=== PATIENT | female | born 1960 | race Asian ===

== ENCOUNTER 2016-10-08 19:37 | Inpatient (IN) | payer MEDICAID ==
[~2016-10-08] VITALS: Ht 154.9 cm; Wt 44.6 kg
[2016-10-08] MEDS ORDERED: SODIUM CHLORIDE 0.9% 1,000 ML IV ONE (20:15)
[2016-10-08 20:41] LABS: Basophils # (auto) 0.1 uL; Basophils % (auto) 0.7 % (0.0-2.0); DEFINITIVE VIEW TRANSMISSION; Eosinophils # (auto) 0.2 uL; Eosinophils % (auto) 1.9 % (0.0-7.0); Hematocrit 36.7 % (36.0-46.0); Hemoglobin 11.3 g/dL (12.2-16.2); Lymphocytes # (auto) 2.8 uL; Lymphocytes % (auto) 33.9 % (10.0-50.0); Mean Corpuscular Hemoglobin 24.7 pg (28.0-32.0); Mean Corpuscular Hgb Conc. 30.7 g/dL (32.0-36.0); Mean Corpuscular Volume 80.5 fL (80.0-100.0); Mean Platelet Volume 7.9 fL (7.4-10.4); Monocytes # (auto) 0.6 uL; Monocytes % (auto) 7.7 % (0.0-12.0); Neutrophils # (auto) 4.7 uL; Neutrophils % (auto) 55.8 % (37.0-80.0); Platelet Count (auto) 384 10^3/uL (140-450); Red Cell Distribution Width 18.6 % (11.6-16.0); White Blood Cell 8.4 10^3/uL (4.4-10.8)
[2016-10-08 20:44] LABS: Albumin 1.9 g/dL (3.4-5.0); Anion Gap 9 (5-15); Aspartate Aminotransferase 13 U/L (15-37); BUN/Creatinine Ratio 8.6; Blood Urea Nitrogen 19 mg/dL (7-18); Calcium 8.6 mg/dL (8.5-10.1); Carbon Dioxide 29 mmol/L (21-32); Chloride 97 mmol/L (98-107); GFR African American 29 mL/min; GFR Non-African American 24 mL/min; Glucose 127 mg/dL (74-106); Magnesium 2.1 mg/dL (1.6-2.6); Potassium 3.6 mmol/L (3.5-5.1); Sodium 135 mmol/L (136-145)
[2016-10-08 20:50] LABS: Alkaline Phosphatase 107 U/L (45-117); Bilirubin, Total 0.3 mg/dL (0.2-1.0); INR 1.04 (0.9-1.15); Partial Thromboplastin Time 30.6 sec (22.64-33.71); Prothrombin Time 11.2 sec (9.37-12.3)
[2016-10-08] MEDS ORDERED: MORPHINE SULF INJ 2 MG/ML SYRINGE 1ML IV ONE (23:00)
[2016-10-08] MEDS ORDERED: ONDANSETRON HCL 4 MG/2 ML VIAL IV ONE (23:00)
[2016-10-08] MEDS ORDERED: cefTRIAXone 1GM/50ML D5W 50 ML IV ONE (23:30)
[2016-10-08 23:49] LABS: Urine Bilirubin Negative (Negative); Urine Blood 2+ /uL (Negative); Urine Color Yellow (Yellow); Urine Glucose 1+ mg/dL (Normal); Urine Ketone Negative (Negative); Urine Nitrite Negative (Negative); Urine RBC 12 /hpf (0 - 4); Urine Urobilinogen Normal (Negative)
[2016-10-09] MEDS ORDERED: LIDOCAINE 1% HCL (LOCAL ANESTH.) INJ 20ML MDV ONE (03:34)
[2016-10-09] MEDS ORDERED: MORPHINE SULF INJ 2 MG/ML SYRINGE 1ML IV PRN (06:00)
[2016-10-09] MEDS ORDERED: ONDANSETRON HCL 4 MG/2 ML VIAL IV PRN (06:00)
[2016-10-09] MEDS ORDERED: NITROGLYCERIN 0.4 MG SL TAB SL PRN (06:00)
[2016-10-09] MEDS: InsuLIN REG 1unit/0.01ml Soln (100units/ml) SC SCH ×4 (06:00→22:55)
[2016-10-09] MEDS ORDERED: hydrALAZINE HCL 20 MG/ML VL IV ONE (06:00)
[2016-10-09] MEDS ORDERED: DEXTROSE (50%) 50ML SYRG IV PRN (06:00)
[2016-10-09] MEDS: ACCU-CHEK COMFORT CURVE STRIP VI SCH ×4 (06:19→22:55)
[2016-10-09] MEDS ORDERED: MORPHINE SULF INJ 2 MG/ML SYRINGE 1ML IV ONE (06:30)
[2016-10-09] MEDS ORDERED: LEVOFLOXACIN 500MG 100 ML IV ONE (06:30)
[2016-10-09] MEDS: LEVOTHYROXINE SODIUM 25 MCG TAB PO SCH (06:47)
[2016-10-09 09:00] VITALS: BP 153/95
[2016-10-09] MEDS: ENOXAPARIN SOD 30 MG/0.3 ML SYRINGE SC SCH (09:26)
[2016-10-09] MEDS: PANTOPRAZOLE SODIUM 40 MG/10 ML VIAL IV SCH (09:26)
[2016-10-09] MEDS: METOPROLOL SUCCINATE XL 50 MG TAB PO SCH (09:27)
[2016-10-09] MEDS: amLODIPine BESYLATE 5 MG TAB PO SCH (09:28)
[2016-10-09] MEDS ORDERED: ATOR40TA52 PO (09:55)
[2016-10-09] MEDS ORDERED: AMLO10TA2 PO (09:55)
[2016-10-09] MEDS ORDERED: BENAZEPRIL HCL 10 MG TAB PO SCH (10:00)
[2016-10-09] MEDS: ACETAMINOPHEN 325 MG TAB PO PRN ×2 (14:56→22:54)
[2016-10-09] MEDS ORDERED: ASPirin 81 mg TAB PO ONE (15:45)
[2016-10-09 16:26] VITALS: BP 137/72
[2016-10-09] MEDS ORDERED: hydrALAZINE HCL 20 MG/ML VL IV PRN (17:30)
[2016-10-09] MEDS ORDERED: FUROSEMIDE 100 MG/10ML VIAL IV ONE (17:30)
[2016-10-09] MEDS ORDERED: SODIUM CHLORIDE 0.9% 1,000 ML IV ONE ×2 (17:30)
[2016-10-09 21:20] LABS: Cholesterol 186 mg/dL (< 200); HDL Cholesterol 34 mg/dL (40-59); LDL Cholesterol 120 mg/dL (< 100); Triglycerides 132 mg/dL (< 150)
[2016-10-09 21:43] LABS: Temperature: 23.7 C (20.0-25.0)
[2016-10-09 22:00] VITALS: BP 145/88
[2016-10-09] MEDS: ATORVASTATIN 20 MG TAB PO SCH (22:54)
[2016-10-09 23:30] VITALS: BP 143/84
[2016-10-10] VITALS (8 sets, daily range): BP systolic 123–169; BP diastolic 70–98
[2016-10-10] MEDS: ACCU-CHEK COMFORT CURVE STRIP VI SCH ×4 (06:00→23:02)
[2016-10-10] MEDS: InsuLIN REG 1unit/0.01ml Soln (100units/ml) SC SCH ×4 (06:00→23:02)
[2016-10-10 06:18] LABS: Basophils # (auto) 0 uL; Basophils % (auto) 0.7 % (0.0-2.0); DEFINITIVE VIEW TRANSMISSION; Eosinophils # (auto) 0.3 uL; Eosinophils % (auto) 4.1 % (0.0-7.0); Hematocrit 38.8 % (36.0-46.0); Hemoglobin 11.7 g/dL (12.2-16.2); Lymphocytes # (auto) 2.7 uL; Lymphocytes % (auto) 36.2 % (10.0-50.0); Mean Corpuscular Hemoglobin 24.8 pg (28.0-32.0); Mean Corpuscular Hgb Conc. 30.1 g/dL (32.0-36.0); Mean Corpuscular Volume 82.4 fL (80.0-100.0); Mean Platelet Volume 7.9 fL (7.4-10.4); Monocytes # (auto) 0.6 uL; Monocytes % (auto) 7.5 % (0.0-12.0); Neutrophils # (auto) 3.8 uL; Neutrophils % (auto) 51.5 % (37.0-80.0); Platelet Count (auto) 367 10^3/uL (140-450); Red Cell Distribution Width 18.5 % (11.6-16.0); White Blood Cell 7.4 10^3/uL (4.4-10.8)
[2016-10-10] MEDS: LEVOTHYROXINE SODIUM 25 MCG TAB PO SCH (06:39)
[2016-10-10 06:41] LABS: Potassium 4.2 mmol/L (3.5-5.1)
[2016-10-10 06:44] LABS: Albumin 1.9 g/dL (3.4-5.0); BUN/Creatinine Ratio 10.6; Calcium 9.2 mg/dL (8.5-10.1)
[2016-10-10 06:57] LABS: Bilirubin, Total 0.2 mg/dL (0.2-1.0); Total Protein 7.9 g/dL (6.4-8.2)
[2016-10-10] MEDS ORDERED: EPOETIN ALFA 10,000 UNIT/1 ML VIAL IV ONE (11:45)
[2016-10-10] MEDS: ACETAMINOPHEN 325 MG TAB PO PRN (14:54)
[2016-10-10] MEDS: PANTOPRAZOLE SODIUM 40 MG/10 ML VIAL IV SCH (15:47)
[2016-10-10] MEDS: LEVOFLOXACIN 250MG 50 ML IV SCH (15:47)
[2016-10-10] MEDS: ASPirin 81 mg TAB PO SCH (15:48)
[2016-10-10] MEDS: amLODIPine BESYLATE 5 MG TAB PO SCH (17:00)
[2016-10-10] MEDS: METOPROLOL SUCCINATE XL 50 MG TAB PO SCH (17:01)
[2016-10-10] MEDS: ENOXAPARIN SOD 30 MG/0.3 ML SYRINGE SC SCH (17:13)
[2016-10-10] MEDS: ATORVASTATIN 20 MG TAB PO SCH (21:35)
[2016-10-11] MEDS: MORPHINE SULF INJ 2 MG/ML SYRINGE 1ML IV PRN ×5 (01:01→22:00)
[2016-10-11] MEDS: InsuLIN REG 1unit/0.01ml Soln (100units/ml) SC SCH ×3 (05:35→18:00)
[2016-10-11] MEDS: ACCU-CHEK COMFORT CURVE STRIP VI SCH ×3 (05:35→18:21)
[2016-10-11 06:00] VITALS: BP 165/88
[2016-10-11] MEDS: LEVOTHYROXINE SODIUM 25 MCG TAB PO SCH (06:08)
[2016-10-11 06:31] LABS: Basophils # (auto) 0 uL; Basophils % (auto) 0.6 % (0.0-2.0); DEFINITIVE VIEW TRANSMISSION; Eosinophils # (auto) 0.2 uL; Eosinophils % (auto) 3.1 % (0.0-7.0); Hematocrit 36.9 % (36.0-46.0); Hemoglobin 11.2 g/dL (12.2-16.2); Lymphocytes # (auto) 1.4 uL; Lymphocytes % (auto) 22.7 % (10.0-50.0); Mean Corpuscular Hemoglobin 24.5 pg (28.0-32.0); Mean Corpuscular Hgb Conc. 30.4 g/dL (32.0-36.0); Mean Corpuscular Volume 80.5 fL (80.0-100.0); Mean Platelet Volume 7.8 fL (7.4-10.4); Monocytes # (auto) 0.4 uL; Monocytes % (auto) 6.6 % (0.0-12.0); Neutrophils # (auto) 4.2 uL; Platelet Count (auto) 353 10^3/uL (140-450); Red Cell Distribution Width 18.4 % (11.6-16.0); White Blood Cell 6.2 10^3/uL (4.4-10.8)
[2016-10-11 06:45] LABS: Potassium 4.2 mmol/L (3.5-5.1)
[2016-10-11 06:49] LABS: Albumin 1.8 g/dL (3.4-5.0); BUN/Creatinine Ratio 9.7; Calcium 8.3 mg/dL (8.5-10.1)
[2016-10-11 06:52] LABS: Bilirubin, Total 0.2 mg/dL (0.2-1.0); Total Protein 7.4 g/dL (6.4-8.2)
[2016-10-11 09:00] VITALS: BP 155/91
[2016-10-11] MEDS: LEVOFLOXACIN 250MG 50 ML IV SCH (09:40)
[2016-10-11] MEDS: PANTOPRAZOLE SODIUM 40 MG/10 ML VIAL IV SCH (09:40)
[2016-10-11] MEDS: ENOXAPARIN SOD 30 MG/0.3 ML SYRINGE SC SCH (09:40)
[2016-10-11] MEDS: ASPirin 81 mg TAB PO SCH (09:41)
[2016-10-11] MEDS: PRO-STAT 64 30ML PO SCH (09:42)
[2016-10-11] MEDS: METOPROLOL SUCCINATE XL 50 MG TAB PO SCH (09:42)
[2016-10-11] MEDS: amLODIPine BESYLATE 5 MG TAB PO SCH (09:42)
[2016-10-11 13:00] VITALS: BP 164/60
[2016-10-11 17:00] VITALS: BP 154/90
[2016-10-11 21:26] VITALS: BP 136/78
[2016-10-11] MEDS: ATORVASTATIN 20 MG TAB PO SCH (21:59)
[2016-10-12 04:48] VITALS: BP 170/93
[2016-10-12] MEDS: InsuLIN REG 1unit/0.01ml Soln (100units/ml) SC SCH ×4 (06:00→18:00)
[2016-10-12] MEDS: LEVOTHYROXINE SODIUM 25 MCG TAB PO SCH (06:04)
[2016-10-12] MEDS: ACCU-CHEK COMFORT CURVE STRIP VI SCH ×4 (06:04→18:11)
[2016-10-12 07:02] LABS: Basophils # (auto) 0 uL; Basophils % (auto) 0.3 % (0.0-2.0); DEFINITIVE VIEW TRANSMISSION; Eosinophils # (auto) 0.4 uL; Hematocrit 37.6 % (36.0-46.0); Hemoglobin 11.5 g/dL (12.2-16.2); Lymphocytes # (auto) 1.5 uL; Lymphocytes % (auto) 19.9 % (10.0-50.0); Mean Corpuscular Hemoglobin 24.6 pg (28.0-32.0); Mean Corpuscular Hgb Conc. 30.7 g/dL (32.0-36.0); Mean Corpuscular Volume 80.3 fL (80.0-100.0); Mean Platelet Volume 7.8 fL (7.4-10.4); Monocytes # (auto) 0.6 uL; Monocytes % (auto) 7.2 % (0.0-12.0); Neutrophils # (auto) 5.2 uL; Neutrophils % (auto) 67.6 % (37.0-80.0); Platelet Count (auto) 382 10^3/uL (140-450); Red Cell Distribution Width 18.5 % (11.6-16.0); White Blood Cell 7.7 10^3/uL (4.4-10.8)
[2016-10-12 07:21] LABS: Calcium 8.6 mg/dL (8.5-10.1); Potassium 4.4 mmol/L (3.5-5.1)
[2016-10-12 07:23] LABS: BUN/Creatinine Ratio 11.9
[2016-10-12] MEDS: MORPHINE SULF INJ 2 MG/ML SYRINGE 1ML IV PRN ×4 (07:31→22:11)
[2016-10-12] MEDS ORDERED: SODIUM CHL 0.9% 1000 ML BAG XX ONE (08:30)
[2016-10-12 09:01] VITALS: BP 170/86
[2016-10-12] MEDS: ENOXAPARIN SOD 30 MG/0.3 ML SYRINGE SC SCH (09:56)
[2016-10-12] MEDS: PANTOPRAZOLE SODIUM 40 MG/10 ML VIAL IV SCH (09:56)
[2016-10-12] MEDS: ASPirin 81 mg TAB PO SCH (09:56)
[2016-10-12] MEDS: PRO-STAT 64 30ML PO SCH (10:00)
[2016-10-12] MEDS: LEVOFLOXACIN 250MG 50 ML IV SCH (13:12)
[2016-10-12 13:17] VITALS: BP 153/81
[2016-10-12] MEDS: METOPROLOL SUCCINATE XL 50 MG TAB PO SCH (13:18)
[2016-10-12] MEDS: amLODIPine BESYLATE 5 MG TAB PO SCH (13:19)
[2016-10-12 14:04] VITALS: BP 117/72
[2016-10-12 17:08] VITALS: BP 163/84
[2016-10-12 20:00] VITALS: BP 166/83
[2016-10-12] MEDS: ATORVASTATIN 20 MG TAB PO SCH (22:11)
[2016-10-13] MEDS: InsuLIN REG 1unit/0.01ml Soln (100units/ml) SC SCH ×3 (00:13→12:00)
[2016-10-13] MEDS: ACCU-CHEK COMFORT CURVE STRIP VI SCH ×3 (00:13→12:00)
[2016-10-13 05:31] VITALS: BP 150/77
[2016-10-13 06:05] LABS: BUN/Creatinine Ratio 13.7; Calcium 8.2 mg/dL (8.5-10.1); Potassium 4.2 mmol/L (3.5-5.1)
[2016-10-13] MEDS: LEVOTHYROXINE SODIUM 25 MCG TAB PO SCH (06:25)
[2016-10-13] MEDS: MORPHINE SULF INJ 2 MG/ML SYRINGE 1ML IV PRN (09:38)
[2016-10-13] MEDS: PRO-STAT 64 30ML PO SCH (10:00)
[2016-10-13] MEDS: PANTOPRAZOLE SODIUM 40 MG/10 ML VIAL IV SCH (11:12)
[2016-10-13] MEDS: ASPirin 81 mg TAB PO SCH (11:13)
[2016-10-13] MEDS: ENOXAPARIN SOD 30 MG/0.3 ML SYRINGE SC SCH (11:13)
[2016-10-13] MEDS: METOPROLOL SUCCINATE XL 50 MG TAB PO SCH (11:14)
[2016-10-13] MEDS: LEVOFLOXACIN 250MG 50 ML IV SCH (11:14)
[2016-10-13] MEDS: amLODIPine BESYLATE 5 MG TAB PO SCH (13:37)
[2016-10-13 16:13] VITALS: BP 163/81
[2016-10-13] MEDS: ACETAMINOPHEN 325 MG TAB PO PRN (16:58)
[2016-10-13] MEDS ORDERED: Novasource Renal 8 Ounces PO SCH (18:00)
== END 2016-10-13 17:40 | disposition home or self-care (01) | DRG 720 ==
LOC: EDBD 19:37 → ER 19:48 → TELE 19:49 → TELE-EAST 10-09 09:00 → TELE-WESTW 10-10 15:15
PROVIDERS: ADMIT Nurse Practitioner; ATTEND Internal Medicine
DX: A41.9 Sepsis, unspecified organism (principal); G93.41 Metabolic encephalopathy; E43 Unspecified severe protein-calorie malnutrition; L89.159 Pressure ulcer of sacral region, unspecified stage; N17.9 Acute kidney failure, unspecified; I12.0 Hypertensive chronic kidney disease with stage 5 chronic kidney disease or end stage renal disease; S32.10XA Unspecified fracture of sacrum, initial encounter for closed fracture; N18.6 End stage renal disease; E11.22 Type 2 diabetes mellitus with diabetic chronic kidney disease; J98.11 Atelectasis; E78.5 Hyperlipidemia, unspecified; D63.1 Anemia in chronic kidney disease; E03.9 Hypothyroidism, unspecified; N30.90 Cystitis, unspecified without hematuria; F03.90 Unspecified dementia, unspecified severity, without behavioral disturbance, psychotic disturbance, mood disturbance, and anxiety; S42.031A Displaced fracture of lateral end of right clavicle, initial encounter for closed fracture; X58.XXXA Exposure to other specified factors, initial encounter; Z87.891 Personal history of nicotine dependence; Z86.73 Personal history of transient ischemic attack (TIA), and cerebral infarction without residual deficits; Z68.1 Body mass index [BMI] 19.9 or less, adult; Z99.2 Dependence on renal dialysis; Z91.81 History of falling; Z74.01 Bed confinement status; Y93.89 Activity, other specified; Y92.89 Other specified places as the place of occurrence of the external cause; Y99.8 Other external cause status; I69.354 Hemiplegia and hemiparesis following cerebral infarction affecting left non-dominant side
CPT/HCPCS: 36415; 51702; 70450; 71010; 72125; 74176; 80048; 80053; 80061; 80307; 80320; 81001; 82607; 82746; 82962; 83036; 83605; 83735; 84439; 84443; 84484; 85025; 85610; 85730; 87040; 87086; 93005; 93926; 94761; 95819; 96361; 96365; 96375; 97001; C9113; J0696; J0885; J1815; J1956; J2001; J2405

== ENCOUNTER 2017-01-28 18:29 | Inpatient (IN) | payer MEDICAID ==
[~2017-01-28] VITALS: Ht 154.9 cm; Wt 69.1 kg
[~2017-01-28 18:29] MED LIST: AMLO10TA2 PO; ATOR40TA52 PO
[2017-01-28 21:19] LABS: Basophils # (auto) 0 uL; Basophils % (auto) 0.2 % (0.0-2.0); CONDITION Y; DEFINITIVE SEE PRINTOUT; Eosinophils # (auto) 0.8 uL; Eosinophils % (auto) 5.6 % (0.0-7.0); Hematocrit 33.8 % (36.0-46.0); Hemoglobin 10.8 g/dL (12.2-16.2); Lymphocytes # (auto) 2.5 uL; Mean Corpuscular Hemoglobin 24.5 pg (28.0-32.0); Mean Corpuscular Hgb Conc. 32.1 g/dL (32.0-36.0); Mean Corpuscular Volume 76.3 fL (80.0-100.0); Mean Platelet Volume 8.1 fL (7.4-10.4); Monocytes # (auto) 1.1 uL; Monocytes % (auto) 7.4 % (0.0-12.0); Neutrophils # (auto) 10.4 uL; Neutrophils % (auto) 69.8 % (37.0-80.0); Platelet Count (auto) 508 10^3/uL (140-450); Red Cell Distribution Width 17.7 % (11.6-16.0); White Blood Cell 14.9 10^3/uL (4.4-10.8)
[2017-01-28 21:31] LABS: Albumin 2.4 g/dL (3.4-5.0); BUN/Creatinine Ratio 12.8; Bilirubin, Total 0.3 mg/dL (0.2-1.0); Calcium 9.5 mg/dL (8.5-10.1); Potassium 4.2 mmol/L (3.5-5.1)
[2017-01-28 21:34] LABS: Partial Thromboplastin Time 30.4 sec (22.64-33.71); Prothrombin Time 10.9 sec (9.37-12.3)
[2017-01-28] MEDS ORDERED: ONDANSETRON HCL 4 MG/2 ML VIAL IV ONE (22:30)
[2017-01-28] MEDS ORDERED: MORPHINE SULFATE 4 MG/ML SYRG IM ONE (22:30)
[2017-01-28] MEDS ORDERED: MORPHINE SULFATE 4 MG/ML SYRG IV ONE (22:45)
[2017-01-29] MEDS ORDERED: VANCOMYCIN 1GM/250ML D5W 250 ML IV ONE (03:45)
[2017-01-29] MEDS ORDERED: B CO OR (04:17)
[2017-01-29] MEDS ORDERED: SENN8.6T15 PO (04:17)
[2017-01-29] MEDS ORDERED: PANT40TA2 PO (04:19)
[2017-01-29] MEDS ORDERED: CHOL20007 PO (04:19)
[2017-01-29] MEDS ORDERED: DOCU-94 PO (04:19)
[2017-01-29] MEDS ORDERED: DEXTROSE (50%) 50ML SYRG IV PRN (05:15)
[2017-01-29] MEDS ORDERED: NITROGLYCERIN 0.4 MG SL TAB SL PRN (05:15)
[2017-01-29] MEDS ORDERED: ONDANSETRON HCL 4 MG/2 ML VIAL IV PRN (05:15)
[2017-01-29] MEDS ORDERED: MORPHINE SULF INJ 2 MG/ML SYRINGE 1ML IV PRN (05:15)
[2017-01-29] MEDS ORDERED: ACETAMINOPHEN 325 MG TAB PO PRN (05:15)
[2017-01-29] MEDS: SODIUM CHLORIDE 0.9% 1,000 ML IV SCH (05:27)
[2017-01-29] MEDS: HYDROcodone-ACET 5/325MG TAB PO PRN ×3 (06:05→16:01)
[2017-01-29] MEDS: ACCU-CHEK COMFORT CURVE STRIP VI SCH ×4 (06:08→23:46)
[2017-01-29] MEDS: InsuLIN REG 1unit/0.01ml Soln (100units/ml) SC SCH ×4 (06:08→23:46)
[2017-01-29] MEDS: LEVOTHYROXINE SODIUM 25 MCG TAB PO SCH (06:39)
[2017-01-29] MEDS: cefTRIAXone 1GM/50ML D5W 50 ML IV SCH (07:50)
[2017-01-29 10:00] VITALS: BP 149/76
[2017-01-29] MEDS ORDERED: amLODIPine BESYLATE 5 MG TAB PO SCH (10:00)
[2017-01-29] MEDS: ENOXAPARIN SOD 30 MG/0.3 ML SYRINGE SC SCH (11:53)
[2017-01-29] MEDS: PANTOPRAZOLE 40 MG/10 ML VIAL IV SCH (11:53)
[2017-01-29 13:00] VITALS: BP 166/94
[2017-01-29] MEDS ORDERED: VANCOMYCIN PER PHARMACY 0 MG IV SCH (15:00)
[2017-01-29] MEDS ORDERED: ASPirin-EC 81 mg tab PO ONE (16:00)
[2017-01-29 17:00] VITALS: BP 132/79
[2017-01-29] MEDS: cloNIDine HCL 0.1 MG TAB PO PRN (17:33)
[2017-01-29 22:00] VITALS: BP 149/83
[2017-01-29] MEDS: ATORVASTATIN 20 MG TAB PO SCH (22:07)
[2017-01-30 05:00] VITALS: BP 146/82
[2017-01-30 05:11] LABS: Basophils # (auto) 0 uL; Basophils % (auto) 0.2 % (0.0-2.0); CONDITION Y; DEFINITIVE SEE PRINTOUT; Eosinophils # (auto) 0.5 uL; Eosinophils % (auto) 3.2 % (0.0-7.0); Hematocrit 34.7 % (36.0-46.0); Hemoglobin 11.3 g/dL (12.2-16.2); Lymphocytes # (auto) 1.5 uL; Mean Corpuscular Hemoglobin 24.8 pg (28.0-32.0); Mean Corpuscular Hgb Conc. 32.6 g/dL (32.0-36.0); Mean Platelet Volume 7.7 fL (7.4-10.4); Monocytes % (auto) 6.9 % (0.0-12.0); Neutrophils # (auto) 12.1 uL; Neutrophils % (auto) 79.7 % (37.0-80.0); Platelet Count (auto) 520 10^3/uL (140-450); Red Cell Distribution Width 17.6 % (11.6-16.0); White Blood Cell 15.1 10^3/uL (4.4-10.8)
[2017-01-30] MEDS: ACCU-CHEK COMFORT CURVE STRIP VI SCH ×3 (05:43→17:34)
[2017-01-30] MEDS: InsuLIN REG 1unit/0.01ml Soln (100units/ml) SC SCH ×3 (05:43→17:34)
[2017-01-30 05:44] LABS: Albumin 2.4 g/dL (3.4-5.0); Bilirubin, Total 0.3 mg/dL (0.2-1.0); Calcium 9.8 mg/dL (8.5-10.1); Magnesium 2.2 mg/dL (1.6-2.6); Potassium 5.2 mmol/L (3.5-5.1)
[2017-01-30] MEDS: LEVOTHYROXINE SODIUM 25 MCG TAB PO SCH (06:18)
[2017-01-30 08:30] VITALS: BP 159/92
[2017-01-30] MEDS: SODIUM CHLORIDE 0.9% 1,000 ML IV SCH (09:45)
[2017-01-30] MEDS: cefTRIAXone 1GM/50ML D5W 50 ML IV SCH (09:46)
[2017-01-30] MEDS: PANTOPRAZOLE 40 MG/10 ML VIAL IV SCH (09:48)
[2017-01-30] MEDS: ASPirin-EC 81 mg tab PO SCH (09:48)
[2017-01-30] MEDS: ENOXAPARIN SOD 30 MG/0.3 ML SYRINGE SC SCH (09:48)
[2017-01-30] MEDS: amLODIPine BESYLATE 5 MG TAB PO SCH (09:48)
[2017-01-30 12:30] VITALS: BP 167/89
[2017-01-30] MEDS: HYDROcodone-ACET 5/325MG TAB PO PRN (16:59)
[2017-01-30 17:26] VITALS: BP 119/64
[2017-01-30 20:00] VITALS: BP 142/75
[2017-01-30 22:00] VITALS: BP 142/75
[2017-01-30] MEDS: metroNIDAZOLE 500MG/100ML 100 ML IV SCH (22:09)
[2017-01-30] MEDS: ATORVASTATIN 20 MG TAB PO SCH (22:09)
[2017-01-31] MEDS: HYDROcodone-ACET 5/325MG TAB PO PRN ×3 (00:02→19:57)
[2017-01-31] MEDS: ACCU-CHEK COMFORT CURVE STRIP VI SCH ×4 (00:02→17:35)
[2017-01-31] MEDS: InsuLIN REG 1unit/0.01ml Soln (100units/ml) SC SCH ×4 (00:16→17:35)
[2017-01-31] MEDS: SODIUM CHLORIDE 0.9% 1,000 ML IV SCH (04:04)
[2017-01-31 05:00] VITALS: BP 165/85
[2017-01-31 06:00] LABS: Basophils # (auto) 0 uL; Basophils % (auto) 0.3 % (0.0-2.0); CONDITION Y; DEFINITIVE SEE PRINTOUT; Eosinophils # (auto) 0.3 uL; Eosinophils % (auto) 2.3 % (0.0-7.0); Hematocrit 35.7 % (36.0-46.0); Hemoglobin 11.6 g/dL (12.2-16.2); Lymphocytes # (auto) 1.5 uL; Lymphocytes % (auto) 10.3 % (10.0-50.0); Mean Corpuscular Hemoglobin 24.7 pg (28.0-32.0); Mean Corpuscular Hgb Conc. 32.6 g/dL (32.0-36.0); Mean Corpuscular Volume 75.9 fL (80.0-100.0); Mean Platelet Volume 7.5 fL (7.4-10.4); Monocytes # (auto) 0.8 uL; Monocytes % (auto) 5.8 % (0.0-12.0); Neutrophils # (auto) 11.9 uL; Neutrophils % (auto) 81.3 % (37.0-80.0); Platelet Count (auto) 490 10^3/uL (140-450); Red Cell Distribution Width 17.6 % (11.6-16.0); White Blood Cell 14.6 10^3/uL (4.4-10.8)
[2017-01-31 06:36] LABS: Potassium 4.5 mmol/L (3.5-5.1)
[2017-01-31] MEDS: LEVOTHYROXINE SODIUM 25 MCG TAB PO SCH (06:38)
[2017-01-31] MEDS: metroNIDAZOLE 500MG/100ML 100 ML IV SCH (06:39)
[2017-01-31] MEDS: cloNIDine HCL 0.1 MG TAB PO PRN (06:40)
[2017-01-31 06:41] LABS: BUN/Creatinine Ratio 13.2; Calcium 9.8 mg/dL (8.5-10.1)
[2017-01-31 08:00] VITALS: BP 184/85
[2017-01-31] MEDS: cefTRIAXone 1GM/50ML D5W 50 ML IV SCH (08:16)
[2017-01-31 09:00] VITALS: BP 165/80
[2017-01-31] MEDS ORDERED: VANCOMYCIN 500 MG in D5W 5% 100 ML IV ONE (09:00)
[2017-01-31] MEDS: PANTOPRAZOLE 40 MG/10 ML VIAL IV SCH (10:31)
[2017-01-31] MEDS: ENOXAPARIN SOD 30 MG/0.3 ML SYRINGE SC SCH (10:31)
[2017-01-31] MEDS: amLODIPine BESYLATE 5 MG TAB PO SCH (10:33)
[2017-01-31] MEDS: ASPirin-EC 81 mg tab PO SCH (10:33)
[2017-01-31] MEDS ORDERED: MEROPENEM 500MG IVPB 100 ML IV ONE (12:00)
[2017-01-31 12:59] VITALS: BP 134/70
[2017-01-31 16:16] VITALS: BP 156/86
[2017-01-31 22:00] VITALS: BP 129/75
[2017-01-31] MEDS: ATORVASTATIN 20 MG TAB PO SCH (22:34)
[2017-01-31] MEDS: MEROPENEM 500MG IVPB 100 ML IV SCH (22:34)
[2017-02-01] MEDS: ACCU-CHEK COMFORT CURVE STRIP VI SCH ×5 (00:02→23:56)
[2017-02-01] MEDS: InsuLIN REG 1unit/0.01ml Soln (100units/ml) SC SCH ×5 (00:03→23:56)
[2017-02-01 05:00] VITALS: BP 160/90
[2017-02-01] MEDS: SODIUM CHLORIDE 0.9% 1,000 ML IV SCH (05:28)
[2017-02-01] MEDS: LEVOTHYROXINE SODIUM 25 MCG TAB PO SCH (05:41)
[2017-02-01 06:21] LABS: Basophils # (auto) 0 uL; Basophils % (auto) 0.1 % (0.0-2.0); CONDITION Y; DEFINITIVE SEE PRINTOUT; Eosinophils # (auto) 0.5 uL; Eosinophils % (auto) 3.4 % (0.0-7.0); Hemoglobin 11.7 g/dL (12.2-16.2); Lymphocytes # (auto) 1.8 uL; Lymphocytes % (auto) 11.6 % (10.0-50.0); Mean Corpuscular Hemoglobin 24.7 pg (28.0-32.0); Mean Corpuscular Hgb Conc. 32.5 g/dL (32.0-36.0); Mean Corpuscular Volume 76.1 fL (80.0-100.0); Mean Platelet Volume 7.7 fL (7.4-10.4); Monocytes % (auto) 6.1 % (0.0-12.0); Neutrophils # (auto) 12.5 uL; Neutrophils % (auto) 78.8 % (37.0-80.0); Platelet Count (auto) 500 10^3/uL (140-450); Red Cell Distribution Width 17.9 % (11.6-16.0); White Blood Cell 15.9 10^3/uL (4.4-10.8)
[2017-02-01 07:13] LABS: Albumin 2.5 g/dL (3.4-5.0); BUN/Creatinine Ratio 14.7; Bilirubin, Total 0.3 mg/dL (0.2-1.0); Calcium 10.1 mg/dL (8.5-10.1); Potassium 5.2 mmol/L (3.5-5.1); Total Protein 9.5 g/dL (6.4-8.2)
[2017-02-01] MEDS ORDERED: SODIUM CHL 0.9% 1000 ML BAG XX ONE (09:15)
[2017-02-01 09:28] VITALS: BP 168/80
[2017-02-01] MEDS: B-COMPLEX W/ C & FOLIC ACID(NEPHROVITE TAB) PO SCH (10:00)
[2017-02-01] MEDS: MEROPENEM 500MG IVPB 100 ML IV SCH ×2 (10:00→21:54)
[2017-02-01] MEDS: ASPirin-EC 81 mg tab PO SCH (10:00)
[2017-02-01] MEDS: amLODIPine BESYLATE 5 MG TAB PO SCH (10:00)
[2017-02-01] MEDS: ASCORBIC ACID 500 MG TAB PO SCH ×2 (10:00→21:54)
[2017-02-01] MEDS: PANTOPRAZOLE 40 MG/10 ML VIAL IV SCH (10:00)
[2017-02-01 12:58] VITALS: BP 121/77
[2017-02-01 13:46] VITALS: BP 107/65
[2017-02-01] MEDS: ENOXAPARIN SOD 30 MG/0.3 ML SYRINGE SC SCH (13:52)
[2017-02-01 17:37] VITALS: BP 161/85
[2017-02-01] MEDS: HYDROcodone-ACET 5/325MG TAB PO PRN (18:05)
[2017-02-01 21:41] VITALS: BP 139/81
[2017-02-01] MEDS: ATORVASTATIN 20 MG TAB PO SCH (21:54)
[2017-02-02 04:59] VITALS: BP 151/89
[2017-02-02 06:12] LABS: Basophils # (auto) 0.1 uL; Basophils % (auto) 0.4 % (0.0-2.0); CONDITION Y; DEFINITIVE SEE PRINTOUT; Eosinophils # (auto) 0.3 uL; Eosinophils % (auto) 2.4 % (0.0-7.0); Hematocrit 33.1 % (36.0-46.0); Hemoglobin 10.8 g/dL (12.2-16.2); Lymphocytes # (auto) 1.7 uL; Lymphocytes % (auto) 11.5 % (10.0-50.0); Mean Corpuscular Hemoglobin 24.8 pg (28.0-32.0); Mean Corpuscular Hgb Conc. 32.5 g/dL (32.0-36.0); Mean Corpuscular Volume 76.4 fL (80.0-100.0); Mean Platelet Volume 7.6 fL (7.4-10.4); Monocytes % (auto) 7.1 % (0.0-12.0); Neutrophils # (auto) 11.3 uL; Neutrophils % (auto) 78.6 % (37.0-80.0); Platelet Count (auto) 471 10^3/uL (140-450); Red Cell Distribution Width 17.8 % (11.6-16.0); White Blood Cell 14.3 10^3/uL (4.4-10.8)
[2017-02-02] MEDS: LEVOTHYROXINE SODIUM 25 MCG TAB PO SCH (06:32)
[2017-02-02] MEDS: ACCU-CHEK COMFORT CURVE STRIP VI SCH ×3 (06:32→17:46)
[2017-02-02] MEDS: InsuLIN REG 1unit/0.01ml Soln (100units/ml) SC SCH ×3 (06:33→17:46)
[2017-02-02 06:38] LABS: BUN/Creatinine Ratio 13.2; Calcium 9.3 mg/dL (8.5-10.1); Potassium 4.3 mmol/L (3.5-5.1)
[2017-02-02 08:33] VITALS: BP 146/83
[2017-02-02] MEDS: MEROPENEM 500MG IVPB 100 ML IV SCH ×2 (10:18→22:08)
[2017-02-02] MEDS: ASPirin-EC 81 mg tab PO SCH (10:18)
[2017-02-02] MEDS: ENOXAPARIN SOD 30 MG/0.3 ML SYRINGE SC SCH (10:19)
[2017-02-02] MEDS: PANTOPRAZOLE 40 MG/10 ML VIAL IV SCH (10:19)
[2017-02-02] MEDS: ASCORBIC ACID 500 MG TAB PO SCH ×2 (10:19→22:09)
[2017-02-02] MEDS: amLODIPine BESYLATE 5 MG TAB PO SCH (10:19)
[2017-02-02] MEDS: B-COMPLEX W/ C & FOLIC ACID(NEPHROVITE TAB) PO SCH (10:19)
[2017-02-02 12:50] VITALS: BP 155/75
[2017-02-02 17:07] VITALS: BP 161/88
[2017-02-02 22:08] VITALS: BP 152/80
[2017-02-02] MEDS: ATORVASTATIN 20 MG TAB PO SCH (22:08)
[2017-02-02] MEDS: HYDROcodone-ACET 5/325MG TAB PO PRN (22:21)
[2017-02-03] MEDS: ACCU-CHEK COMFORT CURVE STRIP VI SCH ×4 (00:54→17:19)
[2017-02-03] MEDS: InsuLIN REG 1unit/0.01ml Soln (100units/ml) SC SCH ×4 (00:54→18:21)
[2017-02-03 05:27] VITALS: BP 164/86
[2017-02-03] MEDS: LEVOTHYROXINE SODIUM 25 MCG TAB PO SCH (06:36)
[2017-02-03 08:00] VITALS: BP 149/87
[2017-02-03 09:23] VITALS: BP 149/87
[2017-02-03] MEDS: MEROPENEM 500MG IVPB 100 ML IV SCH ×2 (09:37→22:57)
[2017-02-03] MEDS: PANTOPRAZOLE 40 MG/10 ML VIAL IV SCH (09:37)
[2017-02-03] MEDS: B-COMPLEX W/ C & FOLIC ACID(NEPHROVITE TAB) PO SCH (09:38)
[2017-02-03] MEDS: amLODIPine BESYLATE 5 MG TAB PO SCH (09:38)
[2017-02-03] MEDS: ASCORBIC ACID 500 MG TAB PO SCH ×2 (09:38→22:07)
[2017-02-03] MEDS: ASPirin-EC 81 mg tab PO SCH (09:38)
[2017-02-03] MEDS: ENOXAPARIN SOD 30 MG/0.3 ML SYRINGE SC SCH (09:38)
[2017-02-03] MEDS ORDERED: SODIUM CHL 0.9% 1000 ML BAG XX ONE (10:45)
[2017-02-03 12:42] VITALS: BP 152/87
[2017-02-03] MEDS: HYDROcodone-ACET 5/325MG TAB PO PRN ×2 (13:41→22:30)
[2017-02-03 16:53] VITALS: BP 154/92
[2017-02-03] MEDS: LACTULOSE 20Gm/30ML SOLN PO SCH (22:00)
[2017-02-03] MEDS: DOCUSATE SOD 100 MG CAP PO SCH (22:06)
[2017-02-03] MEDS: ATORVASTATIN 20 MG TAB PO SCH (22:07)
[2017-02-03 22:13] VITALS: BP 150/91
[2017-02-04] VITALS (7 sets, daily range): BP systolic 137–162; BP diastolic 68–92
[2017-02-04] MEDS: ACCU-CHEK COMFORT CURVE STRIP VI SCH ×5 (01:03→23:13)
[2017-02-04] MEDS: InsuLIN REG 1unit/0.01ml Soln (100units/ml) SC SCH ×5 (01:04→23:27)
[2017-02-04 06:19] LABS: Basophils # (auto) 0 uL; Basophils % (auto) 0.2 % (0.0-2.0); CONDITION Y; DEFINITIVE SEE PRINTOUT; Eosinophils # (auto) 0.6 uL; Eosinophils % (auto) 3.4 % (0.0-7.0); Hematocrit 32.6 % (36.0-46.0); Hemoglobin 10.6 g/dL (12.2-16.2); Lymphocytes # (auto) 2.9 uL; Lymphocytes % (auto) 15.7 % (10.0-50.0); Mean Corpuscular Hemoglobin 24.7 pg (28.0-32.0); Mean Corpuscular Hgb Conc. 32.6 g/dL (32.0-36.0); Mean Corpuscular Volume 75.8 fL (80.0-100.0); Mean Platelet Volume 7.4 fL (7.4-10.4); Monocytes # (auto) 1.3 uL; Monocytes % (auto) 6.9 % (0.0-12.0); Neutrophils # (auto) 13.7 uL; Neutrophils % (auto) 73.8 % (37.0-80.0); Platelet Count (auto) 571 10^3/uL (140-450); Red Cell Distribution Width 17.7 % (11.6-16.0); White Blood Cell 18.5 10^3/uL (4.4-10.8)
[2017-02-04] MEDS: LEVOTHYROXINE SODIUM 25 MCG TAB PO SCH (06:24)
[2017-02-04] MEDS: B-COMPLEX W/ C & FOLIC ACID(NEPHROVITE TAB) PO SCH (09:42)
[2017-02-04] MEDS: HYDROcodone-ACET 5/325MG TAB PO PRN ×2 (09:42→17:09)
[2017-02-04] MEDS: ASCORBIC ACID 500 MG TAB PO SCH ×2 (09:42→22:29)
[2017-02-04] MEDS: amLODIPine BESYLATE 5 MG TAB PO SCH (09:42)
[2017-02-04] MEDS: MEROPENEM 500MG IVPB 100 ML IV SCH ×2 (09:43→22:30)
[2017-02-04] MEDS: ENOXAPARIN SOD 30 MG/0.3 ML SYRINGE SC SCH (09:43)
[2017-02-04] MEDS: PANTOPRAZOLE 40 MG/10 ML VIAL IV SCH (09:43)
[2017-02-04] MEDS: ASPirin-EC 81 mg tab PO SCH (09:43)
[2017-02-04] MEDS: DOCUSATE SOD 100 MG CAP PO SCH ×2 (09:43→22:29)
[2017-02-04] MEDS: LACTULOSE 20Gm/30ML SOLN PO SCH ×2 (09:44→22:00)
[2017-02-04] MEDS: Novasource Renal 8 Ounces PO SCH ×2 (11:50→17:09)
[2017-02-04] MEDS: ATORVASTATIN 20 MG TAB PO SCH (22:29)
[2017-02-05 05:00] VITALS: BP 147/84
[2017-02-05 06:21] LABS: Basophils # (auto) 0.1 uL; Basophils % (auto) 0.5 % (0.0-2.0); CONDITION Y; DEFINITIVE SEE PRINTOUT; Eosinophils # (auto) 0.5 uL; Eosinophils % (auto) 3.5 % (0.0-7.0); Hematocrit 34.3 % (36.0-46.0); Hemoglobin 11.2 g/dL (12.2-16.2); Lymphocytes # (auto) 1.5 uL; Lymphocytes % (auto) 10.6 % (10.0-50.0); Mean Corpuscular Hemoglobin 24.7 pg (28.0-32.0); Mean Corpuscular Hgb Conc. 32.7 g/dL (32.0-36.0); Mean Corpuscular Volume 75.5 fL (80.0-100.0); Mean Platelet Volume 7.4 fL (7.4-10.4); Monocytes % (auto) 7.2 % (0.0-12.0); Neutrophils % (auto) 78.2 % (37.0-80.0); Platelet Count (auto) 498 10^3/uL (140-450); Red Cell Distribution Width 17.8 % (11.6-16.0); White Blood Cell 14.1 10^3/uL (4.4-10.8)
[2017-02-05] MEDS: ACCU-CHEK COMFORT CURVE STRIP VI SCH ×3 (06:29→18:00)
[2017-02-05] MEDS: LEVOTHYROXINE SODIUM 25 MCG TAB PO SCH (06:30)
[2017-02-05 06:40] LABS: BUN/Creatinine Ratio 12.8; Calcium 9.6 mg/dL (8.5-10.1); Potassium 4.3 mmol/L (3.5-5.1)
[2017-02-05] MEDS: InsuLIN REG 1unit/0.01ml Soln (100units/ml) SC SCH ×3 (06:48→18:00)
[2017-02-05 08:00] VITALS: BP 146/91
[2017-02-05] MEDS: Novasource Renal 8 Ounces PO SCH ×3 (08:00→18:23)
[2017-02-05 09:00] VITALS: BP 146/91
[2017-02-05] MEDS: LACTULOSE 20Gm/30ML SOLN PO SCH ×2 (10:00→21:57)
[2017-02-05] MEDS: DOCUSATE SOD 100 MG CAP PO SCH ×2 (10:00→22:00)
[2017-02-05] MEDS: PANTOPRAZOLE 40 MG/10 ML VIAL IV SCH (10:37)
[2017-02-05] MEDS: ENOXAPARIN SOD 30 MG/0.3 ML SYRINGE SC SCH (10:37)
[2017-02-05] MEDS: MEROPENEM 500MG IVPB 100 ML IV SCH ×2 (10:37→22:12)
[2017-02-05] MEDS: ASPirin-EC 81 mg tab PO SCH (10:38)
[2017-02-05] MEDS: ASCORBIC ACID 500 MG TAB PO SCH ×2 (10:38→22:12)
[2017-02-05] MEDS: B-COMPLEX W/ C & FOLIC ACID(NEPHROVITE TAB) PO SCH (10:38)
[2017-02-05] MEDS: amLODIPine BESYLATE 5 MG TAB PO SCH (10:38)
[2017-02-05 13:00] VITALS: BP 151/87
[2017-02-05] MEDS: HYDROcodone-ACET 5/325MG TAB PO PRN (15:34)
[2017-02-05 16:49] VITALS: BP 156/80
[2017-02-05 22:00] VITALS: BP 144/86
[2017-02-05] MEDS: ATORVASTATIN 20 MG TAB PO SCH (22:12)
[2017-02-06] MEDS: InsuLIN REG 1unit/0.01ml Soln (100units/ml) SC SCH ×4 (00:23→17:38)
[2017-02-06] MEDS: ACCU-CHEK COMFORT CURVE STRIP VI SCH ×4 (00:23→17:38)
[2017-02-06 05:42] VITALS: BP 144/83
[2017-02-06] MEDS: LEVOTHYROXINE SODIUM 25 MCG TAB PO SCH (05:57)
[2017-02-06 06:16] LABS: Basophils # (auto) 0.1 uL; Basophils % (auto) 0.6 % (0.0-2.0); CONDITION Y; DEFINITIVE SEE PRINTOUT; Eosinophils # (auto) 0.9 uL; Eosinophils % (auto) 6.8 % (0.0-7.0); Hematocrit 31.2 % (36.0-46.0); Lymphocytes # (auto) 2.2 uL; Lymphocytes % (auto) 16.3 % (10.0-50.0); Mean Corpuscular Hemoglobin 24.5 pg (28.0-32.0); Mean Corpuscular Hgb Conc. 32.2 g/dL (32.0-36.0); Mean Corpuscular Volume 76.3 fL (80.0-100.0); Mean Platelet Volume 7.2 fL (7.4-10.4); Monocytes # (auto) 1.3 uL; Monocytes % (auto) 9.9 % (0.0-12.0); Neutrophils # (auto) 8.9 uL; Neutrophils % (auto) 66.4 % (37.0-80.0); Platelet Count (auto) 487 10^3/uL (140-450); Red Cell Distribution Width 17.6 % (11.6-16.0); White Blood Cell 13.4 10^3/uL (4.4-10.8)
[2017-02-06 09:00] VITALS: BP 147/78
[2017-02-06] MEDS: DOCUSATE SOD 100 MG CAP PO SCH ×2 (10:00→21:58)
[2017-02-06] MEDS: LACTULOSE 20Gm/30ML SOLN PO SCH ×2 (10:00→21:58)
[2017-02-06 10:12] LABS: Vitamin D 25-Hydroxy 61 ng/mL (.); Vitamin D-2 25-Hydroxy <1.0 ng/mL (.)
[2017-02-06] MEDS: Novasource Renal 8 Ounces PO SCH ×3 (10:59→17:38)
[2017-02-06] MEDS ORDERED: SODIUM CHL 0.9% 1000 ML BAG XX ONE (11:00)
[2017-02-06] MEDS: PANTOPRAZOLE 40 MG/10 ML VIAL IV SCH (11:01)
[2017-02-06] MEDS: MEROPENEM 500MG IVPB 100 ML IV SCH ×2 (11:01→21:57)
[2017-02-06] MEDS: ENOXAPARIN SOD 30 MG/0.3 ML SYRINGE SC SCH (11:02)
[2017-02-06] MEDS: ASPirin-EC 81 mg tab PO SCH (11:02)
[2017-02-06] MEDS: B-COMPLEX W/ C & FOLIC ACID(NEPHROVITE TAB) PO SCH (11:02)
[2017-02-06] MEDS: ASCORBIC ACID 500 MG TAB PO SCH ×2 (11:02→21:59)
[2017-02-06] MEDS: amLODIPine BESYLATE 5 MG TAB PO SCH (11:03)
[2017-02-06] MEDS: HYDROcodone-ACET 5/325MG TAB PO PRN ×3 (11:15→21:59)
[2017-02-06] MEDS ORDERED: EPOETIN ALFA 2,000 UNIT/1 ML VIAL IV ONE (12:30)
[2017-02-06] MEDS ORDERED: EPOETIN ALFA 3,000 UNIT/1 ML VIAL IV ONE (12:30)
[2017-02-06] MEDS: CHOLECALCIFEROL (VITD3) 1,000 UNIT TAB PO SCH (12:42)
[2017-02-06 13:00] VITALS: BP 165/89
[2017-02-06 17:00] VITALS: BP 166/84
[2017-02-06] MEDS: ATORVASTATIN 20 MG TAB PO SCH (21:59)
[2017-02-06 22:00] VITALS: BP 146/83
[2017-02-07] VITALS (7 sets, daily range): BP systolic 122–163; BP diastolic 61–90
[2017-02-07] MEDS: InsuLIN REG 1unit/0.01ml Soln (100units/ml) SC SCH ×4 (00:29→17:24)
[2017-02-07] MEDS: ACCU-CHEK COMFORT CURVE STRIP VI SCH ×4 (00:29→17:24)
[2017-02-07 05:40] LABS: Calcium 9.5 mg/dL (8.5-10.1); Potassium 5.4 mmol/L (3.5-5.1)
[2017-02-07 05:41] LABS: Basophils # (auto) 0.1 uL; Basophils % (auto) 0.7 % (0.0-2.0); CONDITION Y; DEFINITIVE SEE PRINTOUT; Eosinophils # (auto) 0.9 uL; Eosinophils % (auto) 6.5 % (0.0-7.0); Hematocrit 32.2 % (36.0-46.0); Hemoglobin 10.3 g/dL (12.2-16.2); Lymphocytes # (auto) 2.3 uL; Lymphocytes % (auto) 17.4 % (10.0-50.0); Mean Corpuscular Hemoglobin 24.2 pg (28.0-32.0); Mean Corpuscular Hgb Conc. 31.9 g/dL (32.0-36.0); Mean Corpuscular Volume 75.8 fL (80.0-100.0); Mean Platelet Volume 7.4 fL (7.4-10.4); Monocytes # (auto) 1.2 uL; Monocytes % (auto) 9.2 % (0.0-12.0); Neutrophils # (auto) 8.9 uL; Neutrophils % (auto) 66.2 % (37.0-80.0); Platelet Count (auto) 526 10^3/uL (140-450); Red Cell Distribution Width 18.1 % (11.6-16.0); White Blood Cell 13.4 10^3/uL (4.4-10.8)
[2017-02-07 05:43] LABS: BUN/Creatinine Ratio 15.5
[2017-02-07] MEDS: LEVOTHYROXINE SODIUM 25 MCG TAB PO SCH (06:16)
[2017-02-07] MEDS: HYDROcodone-ACET 5/325MG TAB PO PRN (06:16)
[2017-02-07] MEDS: Novasource Renal 8 Ounces PO SCH ×2 (08:00→15:48)
[2017-02-07] MEDS ORDERED: SODIUM CHL 0.9% 1000 ML BAG XX ONE (09:00)
[2017-02-07] MEDS ORDERED: EPOETIN ALFA 3,000 UNIT/1 ML VIAL IV ONE (09:00)
[2017-02-07] MEDS ORDERED: EPOETIN ALFA 2,000 UNIT/1 ML VIAL IV ONE (09:00)
[2017-02-07] MEDS: B-COMPLEX W/ C & FOLIC ACID(NEPHROVITE TAB) PO SCH (10:00)
[2017-02-07] MEDS: amLODIPine BESYLATE 5 MG TAB PO SCH (10:00)
[2017-02-07] MEDS: DOCUSATE SOD 100 MG CAP PO SCH (10:00)
[2017-02-07] MEDS: ENOXAPARIN SOD 30 MG/0.3 ML SYRINGE SC SCH (10:00)
[2017-02-07] MEDS: ASPirin-EC 81 mg tab PO SCH (10:00)
[2017-02-07] MEDS: CHOLECALCIFEROL (VITD3) 1,000 UNIT TAB PO SCH (10:00)
[2017-02-07] MEDS: MEROPENEM 500MG IVPB 100 ML IV SCH (10:00)
[2017-02-07] MEDS: LACTULOSE 20Gm/30ML SOLN PO SCH (10:00)
[2017-02-07] MEDS ORDERED: PANTOPRAZOLE 40 MG TAB PO SCH (10:00)
[2017-02-07] MEDS: ASCORBIC ACID 500 MG TAB PO SCH (10:00)
[2017-02-07] MEDS ORDERED: ASP81EC PO (15:10)
== END 2017-02-07 19:27 | disposition home or self-care (01) | DRG 720 ==
LOC: ER 18:29 → EDBD 18:29 → TELE 18:30 → TELE-E-ADS 01-29 08:47 → TELE-WESTW 01-29 12:10 → WEST WING 01-31 10:47
PROVIDERS: ADMIT Nurse Practitioner; ATTEND Internal Medicine
PROC: 5A1D60Z (ICD-10-PCS; principal; 2017-01-30)
DX: A41.9 Sepsis, unspecified organism (principal); E43 Unspecified severe protein-calorie malnutrition; L89.224 Pressure ulcer of left hip, stage 4; I12.0 Hypertensive chronic kidney disease with stage 5 chronic kidney disease or end stage renal disease; S32.10XA Unspecified fracture of sacrum, initial encounter for closed fracture; N18.6 End stage renal disease; E11.22 Type 2 diabetes mellitus with diabetic chronic kidney disease; N17.9 Acute kidney failure, unspecified; L89.153 Pressure ulcer of sacral region, stage 3; F03.90 Unspecified dementia, unspecified severity, without behavioral disturbance, psychotic disturbance, mood disturbance, and anxiety; D63.1 Anemia in chronic kidney disease; E87.1 Hypo-osmolality and hyponatremia; L03.116 Cellulitis of left lower limb; E55.9 Vitamin D deficiency, unspecified; E78.5 Hyperlipidemia, unspecified; L89.890 Pressure ulcer of other site, unstageable; B96.20 Unspecified Escherichia coli [E. coli] as the cause of diseases classified elsewhere; F41.9 Anxiety disorder, unspecified; F01.50 Vascular dementia, unspecified severity, without behavioral disturbance, psychotic disturbance, mood disturbance, and anxiety; E11.65 Type 2 diabetes mellitus with hyperglycemia; X58.XXXA Exposure to other specified factors, initial encounter; Z99.2 Dependence on renal dialysis; Z79.899 Other long term (current) drug therapy; I69.354 Hemiplegia and hemiparesis following cerebral infarction affecting left non-dominant side; Z74.01 Bed confinement status; Z68.28 Body mass index [BMI] 28.0-28.9, adult; Y93.89 Activity, other specified; Y92.89 Other specified places as the place of occurrence of the external cause; Y99.8 Other external cause status
CPT/HCPCS: 36415; 71010; 73700; 78315; 80048; 80053; 80061; 80202; 82306; 82962; 83036; 83605; 83735; 83970; 84100; 84132; 84443; 85025; 85610; 85730; 87040; 87077; 87186; 87205; 90935; 96365; 96375; C9113; J0696; J1642; J1815; J2185; J2405; J3490; J7060; Q4081

== ENCOUNTER 2017-06-11 12:36 | Inpatient (IN) | payer MEDICAID, OTHER ==
[~2017-06-11] VITALS: Ht 157.5 cm; Wt 53.2 kg
[2017-06-11] MEDS: LISINOPRIL 20 MG TAB PO SCH (03:25)
[~2017-06-11 12:36] MED LIST changes: +ASP81EC PO; +B CO OR; +CHOL20007 PO; +DOCU-94 PO; +PANT40TA2 PO; +SENN1TAB14 PO
[2017-06-11] MEDS ORDERED: cloNIDine HCL 0.1 MG TAB PO ONE (13:30)
[2017-06-11 13:50] LABS: Basophils # (auto) 0 uL; Lymphocytes # (auto) 1.2 uL; Monocytes # (auto) 0.6 uL; Neutrophils # (auto) 5.9 uL
[2017-06-11 13:51] LABS: Basophils % (auto) 0.4 % (0.0-2.0); Eosinophils # (auto) 0.6 uL; Eosinophils % (auto) 6.9 % (0.0-7.0); Hematocrit 40.3 % (36.0-46.0); Hemoglobin 12.9 g/dL (12.2-16.2); Lymphocytes % (auto) 14.7 % (10.0-50.0); Mean Corpuscular Hemoglobin 24.8 pg (28.0-32.0); Mean Corpuscular Volume 77.6 fL (80.0-100.0); Monocytes % (auto) 7.1 % (0.0-12.0); Neutrophils % (auto) 70.9 % (37.0-80.0); Nucleated Red Blood Cells % 0.1 %; Platelet Count (auto) 331 10^3/uL (140-450); Red Blood Cells 5.19 10^6/uL (4.0-5.20); Red Cell Distribution Width 16.8 % (11.8-14.3); White Blood Cell 8.4 10^3/uL (4.4-10.8)
[2017-06-11 14:08] LABS: Albumin 3.1 g/dL (3.4-5.0); BUN/Creatinine Ratio 10.6; Bilirubin, Total 0.6 mg/dL (0.2-1.0); Calcium 9.5 mg/dL (8.5-10.1); Magnesium 2.2 mg/dL (1.6-2.6); Potassium 3.5 mmol/L (3.5-5.1); Total Protein 9.7 g/dL (6.4-8.2)
[2017-06-11] MEDS ORDERED: ACETAMINOPHEN 500 MG TAB PO PRN (21:15)
[2017-06-11] MEDS ORDERED: ONDANSETRON HCL 4 MG/2 ML VIAL IV PRN (21:15)
[2017-06-11] MEDS ORDERED: TEMAZEPAM 15 MG CAP PO PRN (21:15)
[2017-06-11] MEDS: ATORVASTATIN 20 MG TAB PO SCH (22:00)
[2017-06-12] VITALS (7 sets, daily range): BP systolic 139–186; BP diastolic 80–99
[2017-06-12] MEDS: LABETALOL HCL 5 MG/ML ML 20ML VIAL IV PRN ×2 (06:33→11:24)
[2017-06-12 06:49] LABS: Hemoglobin 11.4 g/dL (12.2-16.2); Neutrophils % (auto) 71.5 % (37.0-80.0)
[2017-06-12 06:52] LABS: Basophils # (auto) 0 uL; Basophils % (auto) 0.4 % (0.0-2.0); Eosinophils # (auto) 0.4 uL; Eosinophils % (auto) 3.6 % (0.0-7.0); Hematocrit 34.6 % (36.0-46.0); Lymphocytes # (auto) 1.6 uL; Lymphocytes % (auto) 15.8 % (10.0-50.0); Mean Corpuscular Hemoglobin 25.2 pg (28.0-32.0); Mean Corpuscular Volume 76.4 fL (80.0-100.0); Monocytes # (auto) 0.9 uL; Monocytes % (auto) 8.7 % (0.0-12.0); Neutrophils # (auto) 7.1 uL; Platelet Count (auto) 334 10^3/uL (140-450); Red Blood Cells 4.52 10^6/uL (4.0-5.20); Red Cell Distribution Width 16.6 % (11.8-14.3); White Blood Cell 9.9 10^3/uL (4.4-10.8)
[2017-06-12 06:53] LABS: BUN/Creatinine Ratio 10.8; Calcium 9.4 mg/dL (8.5-10.1); Potassium 3.7 mmol/L (3.5-5.1)
[2017-06-12] MEDS ORDERED: cloNIDine HCL 0.1 MG TAB PO PRN (08:00)
[2017-06-12] MEDS ORDERED: METOPROLOL SUCCINATE XL 50 MG TAB PO SCH (10:00)
[2017-06-12] MEDS: PANTOPRAZOLE 40 MG TAB PO SCH (10:12)
[2017-06-12] MEDS: GABAPENTIN 100 MG CAP PO SCH (10:13)
[2017-06-12] MEDS: LISINOPRIL 20 MG TAB PO SCH ×2 (10:13→21:31)
[2017-06-12] MEDS: amLODIPine BESYLATE 5 MG TAB PO SCH (10:14)
[2017-06-12] MEDS ORDERED: SODIUM CHL 0.9% 1000 ML BAG XX ONE (14:15)
[2017-06-12] MEDS ORDERED: DEXTROSE (50%) 50ML SYRG IV PRN (15:00)
[2017-06-12] MEDS: HYDROcodone-ACET 5/325MG TAB PO PRN (16:12)
[2017-06-12] MEDS: ACCU-CHEK COMFORT CURVE STRIP VI SCH ×2 (18:01→21:37)
[2017-06-12] MEDS: InsuLIN REG 1unit/0.01ml Soln (100units/ml) SC SCH ×2 (18:02→21:37)
[2017-06-12] MEDS: ATORVASTATIN 20 MG TAB PO SCH (21:31)
[2017-06-13] MEDS: LABETALOL HCL 5 MG/ML ML 20ML VIAL IV PRN (04:23)
[2017-06-13 05:19] VITALS: BP 164/90
[2017-06-13] MEDS: ACCU-CHEK COMFORT CURVE STRIP VI SCH ×4 (06:27→22:15)
[2017-06-13] MEDS: InsuLIN REG 1unit/0.01ml Soln (100units/ml) SC SCH ×4 (06:28→22:23)
[2017-06-13 07:41] LABS: Eosinophils # (auto) 0.9 uL; Monocytes # (auto) 0.9 uL
[2017-06-13 07:45] LABS: Basophils # (auto) 0 uL; Basophils % (auto) 0.4 % (0.0-2.0); Eosinophils % (auto) 8.4 % (0.0-7.0); Hematocrit 29.6 % (36.0-46.0); Hemoglobin 9.6 g/dL (12.2-16.2); Lymphocytes # (auto) 1.3 uL; Mean Corpuscular Hemoglobin 25.3 pg (28.0-32.0); Mean Corpuscular Hgb Conc. 32.4 g/dL (32.0-36.0); Monocytes % (auto) 8.4 % (0.0-12.0); Neutrophils # (auto) 7.7 uL; Neutrophils % (auto) 70.8 % (37.0-80.0); Nucleated Red Blood Cells % 0.1 %; Platelet Count (auto) 271 10^3/uL (140-450); Red Blood Cells 3.79 10^6/uL (4.0-5.20); Red Cell Distribution Width 16.4 % (11.8-14.3); White Blood Cell 10.9 10^3/uL (4.4-10.8)
[2017-06-13 08:37] LABS: BUN/Creatinine Ratio 10.7; Calcium 8.2 mg/dL (8.5-10.1); Phosphorus 5.6 mg/dL (2.5-4.90); Potassium 3.7 mmol/L (3.5-5.1)
[2017-06-13 09:00] VITALS: BP 147/77
[2017-06-13] MEDS: GABAPENTIN 100 MG CAP PO SCH (09:40)
[2017-06-13] MEDS: LISINOPRIL 20 MG TAB PO SCH ×2 (09:41→22:23)
[2017-06-13] MEDS: PANTOPRAZOLE 40 MG TAB PO SCH (09:41)
[2017-06-13] MEDS: METOPROLOL SUCCINATE XL 50 MG TAB PO SCH (09:42)
[2017-06-13] MEDS: amLODIPine BESYLATE 5 MG TAB PO SCH (09:42)
[2017-06-13 13:00] VITALS: BP 144/73
[2017-06-13 17:00] VITALS: BP 155/93
[2017-06-13] MEDS: SEVELAMER 800 MG TAB PO SCH (18:20)
[2017-06-13] MEDS: HYDROcodone-ACET 5/325MG TAB PO PRN (18:20)
[2017-06-13 22:00] VITALS: BP 138/69
[2017-06-13] MEDS: ASCORBIC ACID 500 MG TAB PO SCH (22:22)
[2017-06-13] MEDS: ATORVASTATIN 20 MG TAB PO SCH (22:22)
[2017-06-14 06:00] VITALS: BP 125/63
[2017-06-14] MEDS: InsuLIN REG 1unit/0.01ml Soln (100units/ml) SC SCH ×3 (06:24→17:14)
[2017-06-14] MEDS: ACCU-CHEK COMFORT CURVE STRIP VI SCH ×3 (06:24→17:15)
[2017-06-14] MEDS: HYDROcodone-ACET 5/325MG TAB PO PRN ×2 (06:25→17:15)
[2017-06-14 06:33] LABS: Calcium 8.9 mg/dL (8.5-10.1); Potassium 4.2 mmol/L (3.5-5.1)
[2017-06-14] MEDS: SEVELAMER 800 MG TAB PO SCH ×3 (08:00→18:00)
[2017-06-14 09:26] VITALS: BP 151/86
[2017-06-14] MEDS ORDERED: B-COMPLEX W/ C & FOLIC ACID(NEPHROVITE TAB) PO SCH (10:00)
[2017-06-14] MEDS ORDERED: SODIUM CHL 0.9% 1000 ML BAG XX ONE (10:00)
[2017-06-14] MEDS ORDERED: ASPirin-EC 81 mg tab PO SCH (10:00)
[2017-06-14] MEDS ORDERED: EPOETIN ALFA 10,000 UNIT/1 ML VIAL IV ONE (10:00)
[2017-06-14] MEDS: LISINOPRIL 20 MG TAB PO SCH (10:00)
[2017-06-14] MEDS: ASCORBIC ACID 500 MG TAB PO SCH (12:13)
[2017-06-14] MEDS: GABAPENTIN 100 MG CAP PO SCH (12:14)
[2017-06-14] MEDS: PANTOPRAZOLE 40 MG TAB PO SCH (12:15)
[2017-06-14] MEDS: METOPROLOL SUCCINATE XL 50 MG TAB PO SCH (12:15)
[2017-06-14] MEDS: amLODIPine BESYLATE 5 MG TAB PO SCH (12:16)
[2017-06-14] MEDS ORDERED: ASP81EC PO (12:40)
[2017-06-14 13:26] VITALS: BP 132/53
[2017-06-14 17:44] VITALS: BP 145/115
== END 2017-06-14 20:05 | disposition home health service (06) | DRG 194 ==
LOC: ER 12:36 → EDUNIT# 12:37 → TELE 12:37 → TELE-WESTW 06-12 08:00
PROVIDERS: ADMIT Nurse Practitioner Family; ATTEND Internal Medicine
PROC: 5A1D70Z Performance of Urinary Filtration, Intermittent, Less than 6 Hours Per Day (ICD-10-PCS; 2017-06-12)
PROC: 5A1D70Z Performance of Urinary Filtration, Intermittent, Less than 6 Hours Per Day (ICD-10-PCS; principal; 2017-06-14)
DX: I13.2 Hypertensive heart and chronic kidney disease with heart failure and with stage 5 chronic kidney disease, or end stage renal disease (principal); E44.0 Moderate protein-calorie malnutrition; N25.81 Secondary hyperparathyroidism of renal origin; N18.6 End stage renal disease; I15.8 Other secondary hypertension; E11.21 Type 2 diabetes mellitus with diabetic nephropathy; E11.22 Type 2 diabetes mellitus with diabetic chronic kidney disease; E87.1 Hypo-osmolality and hyponatremia; D63.8 Anemia in other chronic diseases classified elsewhere; I50.9 Heart failure, unspecified; I69.354 Hemiplegia and hemiparesis following cerebral infarction affecting left non-dominant side; Z79.4 Long term (current) use of insulin; Z79.899 Other long term (current) drug therapy; Z99.2 Dependence on renal dialysis; Z68.21 Body mass index [BMI] 21.0-21.9, adult; I16.0 Hypertensive urgency
CPT/HCPCS: 36415; 70450; 71045; 80048; 80053; 82962; 83036; 83735; 84100; 84484; 85025; 87081; 87493; 90935; 93005; 94761; 97163; J0885; J1642; J1815

== ENCOUNTER 2017-12-07 15:01 | Inpatient (IN) | payer MEDICAID ==
[~2017-12-07] VITALS: Ht 157.5 cm; Wt 43.0 kg
[2017-12-07] VITALS (23 sets, daily range): BP systolic 57–123; BP diastolic 41–75
[2017-12-07] MEDS ORDERED: MIDAZOLAM HCL 1MG/1ML-2 ML VIAL ONE ×2 (15:08→15:09)
[2017-12-07] MEDS ORDERED: NALOXONE HCL 0.4 MG/ML VIAL ONE (15:12)
[2017-12-07] MEDS ORDERED: MIDAZOLAM DRIP 50 mg/50mL 50 ML IV ONE (15:14)
[2017-12-07] MEDS: MIDAZOLAM DRIP 50 mg/50mL 50 ML IV SCH ×2 (15:27→20:15)
[2017-12-07 15:28] LABS: Hematocrit 42.4 % (36.0-46.0); Hemoglobin 12.8 g/dL (12.2-16.2); Mean Corpuscular Hgb Conc. 30.2 g/dL (32.0-36.0); Mean Corpuscular Volume 79.4 fL (80.0-100.0); Platelet Count (auto) 67 10^3/uL (140-450); Red Blood Cells 5.34 10^6/uL (4.0-5.20); Red Cell Distribution Width 19.6 % (11.8-14.3); White Blood Cell 25.5 10^3/uL (4.4-10.8)
[2017-12-07 15:45] LABS: Lactic Acid w/Reflex 3.4 mmol/L (0.4-2.0)
[2017-12-07] MEDS ORDERED: VANCOMYCIN 1 GM/250 ML IV ONE (15:45)
[2017-12-07] MEDS ORDERED: SODIUM CHLORIDE 0.9% 500 ML IV ONE (15:45)
[2017-12-07] MEDS ORDERED: ACETAMINOPHEN 650 MG RECT SUPP PR ONE (15:45)
[2017-12-07 15:47] LABS: Albumin 2.4 g/dL (3.4-5.0); BUN/Creatinine Ratio 13.8; Bilirubin, Total 0.7 mg/dL (0.2-1.0); Calcium 9.2 mg/dL (8.5-10.1); Magnesium 2.4 mg/dL (1.6-2.6); Potassium 3.5 mmol/L (3.5-5.1); Total Protein 8.4 g/dL (6.4-8.2)
[2017-12-07 15:53] LABS: Band Neutrophils % (manual) 0; Basophils % (manual) 0 (0.0-2.0); Blast Cells 0; Eosinophils % (manual) 0 (0-7); Lymphocytes % (manual) 4 (10.0-50.0); Metamyelocytes % 0; Monocytes % (manual) 2 (0-12); Myelocytes % 0; Promyelocytes % 0; Reactive Lymphocytes 0
[2017-12-07] MEDS ORDERED: NOREPINEPHRINE 8 MG/250ML KIT 250 ML IV ONE (15:54)
[2017-12-07] MEDS ORDERED: HEPARIN DRIP/D5W 100UNITS/ML 250 ML IV SCH (15:56)
[2017-12-07] MEDS ORDERED: HEPARIN SODIUM (PORCINE) 5000 UNITS/ML 1ML VIAL IV ONE (16:00)
[2017-12-07 16:01] LABS: Urine Bacteria FEW /hpf (None Seen); Urine Blood 2+ /uL (Negative); Urine Specific Gravity 1.023 (1.001-1.035); Urine WBC 1704 /hpf (0 - 5); Urine WBC Clumps PRESENT /hpf (None Seen)
[2017-12-07 16:14] LABS: Alcohol, Urine < 3.0 mg/dL (0-5); Amphetamine Screen, Urine NEGATIVE (NEGATIVE); Barbiturate Scree,Urine NEGATIVE (NEGATIVE); Benzodiazephine Screen, Urine NEGATIVE (NEGATIVE); Cannabinoid Screen, Urine NEGATIVE (NEGATIVE); Cocaine Screen, Urine NEGATIVE (NEGATIVE); Opiate Scree,Urine NEGATIVE (NEGATIVE); Phencyclidine Screen, Urine NEGATIVE (NEGATIVE)
[2017-12-07] MEDS ORDERED: PIPERACILLIN-TAZOB 2.25GM 50 ML IV ONE (17:00)
[2017-12-07 17:10] LABS: INR 1.14 (0.9-1.15); Partial Thromboplastin Time 33.4 sec (23.78-33.04); Prothrombin Time 12.1 sec (9.27-12.13)
[2017-12-07] MEDS: NOREPINEPHRINE 8 MG/250ML KIT 250 ML IV SCH (17:10)
[2017-12-07] MEDS ORDERED: SODIUM CHLORIDE 0.9% 1,000 ML IV SCH ×2 (17:11→21:11)
[2017-12-07] MEDS ORDERED: InsuLIN R (HUMAN) 100 UNITS in SODIUM CHL 0.9% 99 ML IV SCH (17:11)
[2017-12-07] MEDS ORDERED: NITROGLYCERIN 0.4 MG SL TAB SL PRN (17:15)
[2017-12-07] MEDS ORDERED: PIPERACILLIN-TAZOB 0.75 GM in D5W 5% 50 ML IV SCH (17:15)
[2017-12-07] MEDS ORDERED: LORazepam 2MG/ML-1ML VIAL IV PRN (17:15)
[2017-12-07] MEDS ORDERED: DEXTROSE (50%) 50ML SYRG IV PRN (17:15)
[2017-12-07] MEDS ORDERED: MORPHINE SULF INJ 2 MG/ML SYRINGE 1ML IV PRN ×3 (17:15)
[2017-12-07] MEDS ORDERED: PANTOPRAZOLE 40 MG/10 ML VIAL IV ONE (17:15)
[2017-12-07] MEDS ORDERED: PROMETHAZINE HCL 25 MG/ML 1ML IV PRN (17:15)
[2017-12-07 17:34] LABS: Lactic Acid w/Reflex 2.9 mmol/L (0.4-2.0)
[2017-12-07] MEDS: SODIUM CHLORIDE 0.9% 1,000 ML IV SCH ×2 (17:45→20:33)
[2017-12-07] MEDS ORDERED: MIDAZOLAM HCL 5 MG/ML-1ML VIAL IV ONE ×2 (17:45)
[2017-12-07] MEDS ORDERED: NALOXONE HCL 0.4 MG/ML VIAL IV ONE (17:45)
[2017-12-07] MEDS ORDERED: SODIUM CHLORIDE 0.9% 1,000 ML IV ONE (17:45)
[2017-12-07] MEDS: ACCU-CHEK COMFORT CURVE STRIP VI SCH ×4 (18:10→22:30)
[2017-12-07 18:18] LABS: CRP High Sensitivity 16.7 mg/dL (< 0.3)
[2017-12-07] MEDS ORDERED: ATORVASTATIN 20 MG TAB NG SCH (22:00)
[2017-12-08] VITALS (89 sets, daily range): BP systolic 84–178; BP diastolic 33–89
[2017-12-08] LABS: Calcium 8.2 mg/dL (8.5-10.1)
[2017-12-08 00:03] LABS: Potassium 2.7 mmol/L (3.5-5.1)
[2017-12-08] MEDS: POTASSIUM CHL 20MEQ/100ML 100 ML IV SCH ×2 (01:29→03:00)
[2017-12-08] MEDS: ACCU-CHEK COMFORT CURVE STRIP VI SCH ×5 (01:30→09:16)
[2017-12-08] MEDS: NOREPINEPHRINE 8 MG/250ML KIT 250 ML IV SCH (01:34)
[2017-12-08] MEDS ORDERED: PIPERACILLIN-TAZOB 2.25GM 50 ML IV SCH (05:00)
[2017-12-08 07:04] LABS: Hematocrit 36.8 % (36.0-46.0); Hemoglobin 11.7 g/dL (12.2-16.2); Mean Corpuscular Hemoglobin 23.9 pg (28.0-32.0); Mean Corpuscular Hgb Conc. 31.8 g/dL (32.0-36.0); Mean Corpuscular Volume 75.2 fL (80.0-100.0); Platelet Count (auto) 28 10^3/uL (140-450); Red Blood Cells 4.89 10^6/uL (4.0-5.20); Red Cell Distribution Width 18.9 % (11.8-14.3)
[2017-12-08 07:08] LABS: Basophils % (manual) 0 (0.0-2.0); Blast Cells 0; Eosinophils % (manual) 0 (0-7); Metamyelocytes % 0; Myelocytes % 0; Promyelocytes % 0; Reactive Lymphocytes 0
[2017-12-08 07:46] LABS: Albumin 2.4 g/dL (3.4-5.0); BUN/Creatinine Ratio 15.4; Bilirubin, Total 0.7 mg/dL (0.2-1.0); Calcium 8.6 mg/dL (8.5-10.1); Potassium 3.6 mmol/L (3.5-5.1); Total Protein 8.1 g/dL (6.4-8.2)
[2017-12-08 09:13] LABS: Band Neutrophils % (manual) 2; Lymphocytes % (manual) 7 (10.0-50.0); Monocytes % (manual) 9 (0-12)
[2017-12-08] MEDS ORDERED: PANTOPRAZOLE 40 MG/10 ML VIAL IV SCH (10:00)
[2017-12-08] MEDS ORDERED: ENOXAPARIN SOD 30 MG/0.3 ML SYRINGE SC SCH (10:00)
[2017-12-08] MEDS ORDERED: ASPirin 81 mg TAB NG SCH (10:00)
[2017-12-08] MEDS ORDERED: ACETAMINOPHEN 325 MG TAB PO PRN (10:30)
[2017-12-08 10:40] LABS: BUN/Creatinine Ratio 15.9; Potassium 3.9 mmol/L (3.5-5.1)
[2017-12-08] MEDS ORDERED: InsuLIN REG 1unit/0.01ml Soln (100units/ml) SC SCH (12:00)
[2017-12-08] MEDS ORDERED: ACCU-CHEK COMFORT CURVE STRIP VI SCH (12:00)
[2017-12-08] MEDS ORDERED: LORazepam 2MG/ML-1ML VIAL IV PRN (14:30)
[2017-12-08] MEDS: MORPHINE SULF INJ 2 MG/ML SYRINGE 1ML IV PRN (17:17)
[2017-12-09 04:32] VITALS: BP 158/82
[2017-12-09 09:14] VITALS: BP 88/41
[2017-12-09] MEDS: MORPHINE SULF INJ 2 MG/ML SYRINGE 1ML IV PRN (09:35)
== END 2017-12-09 10:50 | disposition expired | DRG 720 ==
LOC: ER 15:01 → ICU WEST 15:02 → TELE-EAST 12-08 20:51
PROVIDERS: ADMIT Internal Medicine; ATTEND Internal Medicine
PROC: 5A1935Z Respiratory Ventilation, Less than 24 Consecutive Hours (ICD-10-PCS; principal; 2017-12-07)
PROC: 0BH17EZ Insertion of Endotracheal Airway into Trachea, Via Natural or Artificial Opening (ICD-10-PCS; 2017-12-07)
DX: A41.9 Sepsis, unspecified organism (principal); I21.4 Non-ST elevation (NSTEMI) myocardial infarction; I63.9 Cerebral infarction, unspecified; J96.00 Acute respiratory failure, unspecified whether with hypoxia or hypercapnia; R65.21 Severe sepsis with septic shock; G93.41 Metabolic encephalopathy; E11.10 Type 2 diabetes mellitus with ketoacidosis without coma; I33.0 Acute and subacute infective endocarditis; E43 Unspecified severe protein-calorie malnutrition; D69.6 Thrombocytopenia, unspecified; N18.6 End stage renal disease; N39.0 Urinary tract infection, site not specified; E78.5 Hyperlipidemia, unspecified; B96.89 Other specified bacterial agents as the cause of diseases classified elsewhere; D63.8 Anemia in other chronic diseases classified elsewhere; E11.22 Type 2 diabetes mellitus with diabetic chronic kidney disease; E11.65 Type 2 diabetes mellitus with hyperglycemia; E87.6 Hypokalemia; F41.9 Anxiety disorder, unspecified; T82.7XXA Infection and inflammatory reaction due to other cardiac and vascular devices, implants and grafts, initial encounter; Y83.8 Other surgical procedures as the cause of abnormal reaction of the patient, or of later complication, without mention of misadventure at the time of the procedure; I08.0 Rheumatic disorders of both mitral and aortic valves; F32.9 Major depressive disorder, single episode, unspecified; N12 Tubulo-interstitial nephritis, not specified as acute or chronic; I12.0 Hypertensive chronic kidney disease with stage 5 chronic kidney disease or end stage renal disease; Z51.5 Encounter for palliative care; Z66 Do not resuscitate; Z68.1 Body mass index [BMI] 19.9 or less, adult; Z99.2 Dependence on renal dialysis; Z87.81 Personal history of (healed) traumatic fracture; I69.354 Hemiplegia and hemiparesis following cerebral infarction affecting left non-dominant side
CPT/HCPCS: 31500; 36415; 36600; 70450; 71045; 80048; 80053; 80061; 80307; 81001; 82150; 82550; 82805; 82962; 83036; 83605; 83690; 83735; 84484; 85007; 85027; 85610; 85652; 85730; 86141; 87040; 87070; 87077; 87081; 87086; 87088; 87147; 87186; 87205; 93005; 93306; 94002; 94003; 94761; 96361; 96365; 96367; 96375; 99291; C9113; J1815; J2250; J2543; J3480